=== PATIENT | female | born 1990 | race American Indian/Alaskan Native ===

== ENCOUNTER 2016-12-29 19:25 | Emergency (ER) | payer MEDICAID, OTHER ==
[2016-12-29 21:12] LABS: Basophils % (Auto) 0.9 % (0.0-1.8); Eosinophils % (Auto) 3.5 % (0.0-4.3); Hematocrit 37.4 % (30.3-42.9); Hemoglobin 11.7 gm/dl (10.1-14.3); Mean Corpuscular HGB Conc 31 % (30-34); Mean Corpuscular Volume 81 fl (79-97); Platelet Count 324 K/mm3 (140-440); Red Blood Count 4.65 M/mm3 (3.65-5.03); Red Cell Distribution Width 15.1 % (13.2-15.2); White Blood Count 6.2 K/mm3 (4.5-11.0)
[2016-12-29 21:14] LABS: Mean Corpuscular Hemoglobin 25 pg (28-32)
[2016-12-29 21:55] LABS: Bilirubin,Urine NEG (Negative); Blood,Urine MOD (Negative); Ketones,Urine NEG (Negative); Leukocyte Esterase,Urine NEG (Negative); Mucus,Urine FEW /HPF; Nitrite,Urine NEG (Negative); Protein,Urine <15 mg/dL mg/dL (Negative); Urobilinogen,Urine < 2.0 mg/dL (<2.0); WBC,Urine < 1.0 /HPF (0.0-6.0)
[2016-12-30 00:33] VITALS: BP 119/73
--- NOTE | 2016-12-30 01:09 | Emergency Department Report ---
HPI - General Chief Complaint: Urogenital-Female Time Seen by Provider: 12/30/16 00:24 - HPI HPI: 26-year-old -[place] female comes in for complaint of irregular periods since 09/28/2015. Patient reports that she seen by her [employer] but no longer has insurance and thought it was from her [employer] is why she continues to bleed. Patient reports that she will bleed for mild and stop them will come on for a month and then continued to bleed. Patient reports now 11/30/2016 she is now passing large clots. Patient denies any dizziness no shortness of breath no chest pain. She reports today's her period is not present. Patient reports that she was on control pills that was given by her [employer] for 1 month which, controlled her bleeding but has stopped the control pills and now Speck lenient in. He has no past medical history currently on no meds no known drug allergies. ED Past Medical Hx - Past Medical History Previous Medical History?: No - Surgical History Past Surgical History?: Yes Additional Surgical History: - Social History Smoking Status: Never Smoker Substance Use Type: None - Medications Home Medications: Home Medications Medication Instructions Recorded Confirmed Last Taken Type Acetaminophen/Codeine [Tylenol #3] 1 tab PO Q6H PRN #20 tab 05/30/15 Unknown Rx Doxycycline [Vibramycin CAP] 100 mg PO Q12HR 05/30/15 05/30/15 05/30/15 10:30 History Ibuprofen [Motrin] 600 mg PO Q8H PRN #30 tablet 05/30/15 Unknown Rx Promethazine [Phenergan TAB] 25 mg PO Q6HR PRN #20 tab 05/30/15 Unknown Rx Amoxicillin/K Clav Tab [Augmentin 1 tab PO Q12HR #20 tab 07/15/15 Unknown Rx 875 mg] Fluticasone [Flonase] 2 spray NS QDAY #1 bottle 07/15/15 Unknown Rx Loratadine [Claritin] 10 mg PO DAILY #30 tablet 07/15/15 Unknown Rx Prednisone [predniSONE 10 mg 10 mg PO .TAPER #1 tab.ds.pk 07/15/15 Unknown Rx (6-Day Pack, 21 Tabs)] Promethazine /Codeine 5 ml PO Q6H PRN #120 udc 07/15/15 Unknown Rx [Phenergan/Codeine 6.25-10 mg/5 ml] Ibuprofen [Motrin 800 MG tab] 800 mg PO Q8HR PRN #30 tablet 09/02/15 Unknown Rx metroNIDAZOLE [Flagyl] 500 mg PO Q12HR #14 tab 09/02/15 Unknown Rx Fluconazole [Diflucan TAB] 150 mg PO ONCE #1 tablet 01/07/16 Unknown Rx Ibuprofen [Motrin] 800 mg PO Q8HR PRN #15 tablet 01/07/16 Unknown Rx Penicillin Vk [Veetids TAB] 500 mg PO Q8H #30 tablet 01/07/16 Unknown Rx ED Review of Systems ROS: Stated complaint: ABD PAIN Other details as noted in HPI Constitutional: denies: chills, fever Eyes: denies: eye pain, eye discharge, vision change ENT: denies: ear pain, throat pain Respiratory: no symptoms reported Endocrine: no symptoms reported Gastrointestinal: denies: abdominal pain, nausea, diarrhea Genitourinary: abnormal menses Musculoskeletal: denies: back pain, joint swelling, arthralgia Skin: denies: rash, lesions Neurological: denies: headache, weakness, paresthesias Psychiatric: denies: anxiety, depression Hematological/Lymphatic: denies: easy bleeding, easy bruising Physical Exam - Physical Exam Vital Signs: Vital Signs 12/29/16 12/30/16 20:39 00:32 Temperature 97.7 F 98.0 F Pulse Rate 67 66 Respiratory 18 18 Rate Blood Pressure 116/54 Blood Pressure 119/73 [Left] O2 Sat by Pulse 99 99 Oximetry General: GENERAL: Alert and oriented x3, no apparent distress, Normal Gait, atraumatic. HEAD: Head is normocephalic and a-traumatic. EYES: Extra ocular muscles are intact. Pupils are equal, round, and reactive to light and accommodation. EARS: symetrical, atraumatic, non tender, ear canal clear and moderate cerumen, tympanic membrance non inflamed. gross auditory nml bilaterally. NOSE: Nose symetrical, Nontender,Nares appeared normal. MOUTH:Mouth is well hydrated and without lesions. Tonsils nonerythematous or swollen, Uvula midline, Tongue not elevated. Mucous membranes are moist. Posterior pharynx clear, no exudate or lesions. Patent airways. NECK: Supple. Non edematous, No carotid bruits. No lymphadenopathy or thyromegaly. LUNGS: Symetrical with respiration, No wheezing, no rales or crackles, CTAB. HEART: S1, S2 present, regular rate and rhythm without murmur, no rubs, no gallops. ABDOMEN: No organomegaly was noted,Positive bowel sounds, soft, and non- distended. . Nontender to palpation on all Quadrants, NO CVA tenderness. EXTREMITIES/MUSCULOSKELETAL: No cyanosis, clubbing, rash, lesions or edema. Full ROM bilaterally. UE/LE Pulses 2+ bilaterally. LE and UE 5+ strength bilaterally NEUROLOGIC: No focal Deficit, Cranial nerves II through XII are grossly intact. No loss of sensation, No facial droop, Negative rhomberg. PSYCHIATRIC: Mood is congruent with affect, denies suicidal or homicidal ideations. SKIN: Warm and dry, No lesions, No ulceration or induration present ED Course Vital Signs 12/29/16 12/30/16 20:39 00:32 Temperature 97.7 F 98.0 F Pulse Rate 67 66 Respiratory 18 18 Rate Blood Pressure 116/54 Blood Pressure 119/73 [Left] O2 Sat by Pulse 99 99 Oximetry ED Medical Decision Making - Lab Data Result diagrams: 12/29/16 20:56 - Medical Decision Making She has been evaluated by this provider in fast track. Discuss with patient that OB will be the best provider to handle her menorrhagia. Discussed with patient that we'll make a referral for her. Patient verbalized understanding. Critical care attestation.: If time is entered above; I have spent that time in minutes in the direct care of this critically ill patient, excluding procedure time. ED Disposition Clinical Impression: Menorrhagia with irregular cycle Disposition: DISCHARGED TO HOME OR SELFCARE Is pt being admited?: No Does the pt Need Aspirin: No Condition: Stable Instructions: Menorrhagia (ED) Additional Instructions: Recommend to follow up with [facility] [employer] provider to discuss irregular periods. Referrals: LULU LAW DO [Primary Care Provider] - 3-5 Days [facility] [Provider Group] - 3-5 Days Forms: Work/School Release Form(ED)
== END 2016-12-30 02:20 | disposition home or self-care (01) ==
LOC: ED 19:25
DX: N92.0 Excessive and frequent menstruation with regular cycle (principal)
CPT/HCPCS: 36415; 81001; 81025; 85025; 86850; 86900; 86901; 99283

== ENCOUNTER 2017-08-26 09:22 | Emergency (ER) | payer OTHER ==
[2017-08-26 09:32] VITALS: BP 132/74
--- NOTE | 2017-08-26 11:27 | Emergency Department Report ---
HPI - General Chief Complaint: Headache Time Seen by Provider: 08/26/17 11:10 - HPI HPI: She reports this congestion drainage that started over a week ago she's been taking [id number] medication and it is not clearing up. Now she is complaining that she is having some sore throat and occasional coughing. Sore throat is 310 feels sore worse with swallowing. Denies any drooling or difficulty swallowing. Denies any shortness of breath or chest pain. Patient triaged to reflect that she was having chest pain but patient denies any chest pain. She is also complaining in of pain to the front of her head that is 310 and achy. She said her headache started yesterday. Right ear pain also started yesterday. Denies any nausea or vomiting. Denies any fever or chills. Denies any abdominal or back pain. Denies any neck pain or stiffness. Denies any visual difficulties or dizziness. ED Past Medical Hx - Past Medical History Previous Medical History?: Yes Hx Headaches / Migraines: Yes - Surgical History Past Surgical History?: Yes Additional Surgical History: - Family History Family history: hypertension - Social History Smoking Status: Never Smoker Substance Use Type: None - Medications Home Medications: Home Medications Medication Instructions Recorded Confirmed Last Taken Type Acetaminophen/Codeine [Tylenol #3] 1 tab PO Q6H PRN #20 tab 05/30/15 Unknown Rx Doxycycline [Vibramycin CAP] 100 mg PO Q12HR 05/30/15 05/30/15 05/30/15 10:30 History Ibuprofen [Motrin] 600 mg PO Q8H PRN #30 tablet 05/30/15 Unknown Rx Promethazine [Phenergan TAB] 25 mg PO Q6HR PRN #20 tab 05/30/15 Unknown Rx Loratadine [Claritin] 10 mg PO DAILY #30 tablet 07/15/15 Unknown Rx Prednisone [predniSONE 10 mg 10 mg PO .TAPER #1 tab.ds.pk 07/15/15 Unknown Rx (6-Day Pack, 21 Tabs)] Promethazine /Codeine 5 ml PO Q6H PRN #120 udc 07/15/15 Unknown Rx [Phenergan/Codeine 6.25-10 mg/5 ml] Ibuprofen [Motrin 800 MG tab] 800 mg PO Q8HR PRN #30 tablet 09/02/15 Unknown Rx metroNIDAZOLE [Flagyl] 500 mg PO Q12HR #14 tab 09/02/15 Unknown Rx Fluconazole [Diflucan TAB] 150 mg PO ONCE #1 tablet 01/07/16 Unknown Rx Ibuprofen [Motrin] 800 mg PO Q8HR PRN #15 tablet 01/07/16 Unknown Rx Penicillin Vk [Veetids TAB] 500 mg PO Q8H #30 tablet 01/07/16 Unknown Rx Amoxicillin/K Clav Tab [Augmentin 1 tab PO Q12HR #20 tab 08/26/17 Unknown Rx 875MG TAB] Cetirizine HCl [ZyrTEC] 10 mg PO QAM 14 Days #14 capsule 08/26/17 Unknown Rx Fluticasone [Flonase] 2 spray NS QDAY 14 Days #1 bottle 08/26/17 Unknown Rx Neomy/Polymyx B/Hc (Otic) Soln 4 drops OTIC TID 7 Days #1 bottle 08/26/17 Unknown Rx [Cortisporin (Otic) Soln] ED Review of Systems ROS: Stated complaint: CHEST PAIN, HEADACHE, AND NECK PAIN Other details as noted in HPI Comment: All other systems reviewed and negative Constitutional: no symptoms reported Eyes: denies: eye pain, eye discharge, vision change ENT: ear pain, throat pain, congestion. denies: dental pain, hearing loss, epistaxis Respiratory: cough. denies: orthopnea, shortness of breath, SOB with exertion, SOB at rest, stridor, wheezing Cardiovascular: denies: chest pain, palpitations, dyspnea on exertion, edema, syncope Gastrointestinal: denies: abdominal pain, nausea, vomiting, diarrhea Genitourinary: denies: urgency, dysuria, frequency, hematuria, discharge Musculoskeletal: denies: back pain, joint swelling, arthralgia, myalgia Skin: denies: rash Neurological: denies: headache, weakness, numbness, paresthesias, confusion, abnormal gait, vertigo Physical Exam - Physical Exam Vital Signs: Vital Signs 08/26/17 09:26 Temperature 98.6 F Pulse Rate 71 Respiratory 22 Rate Blood Pressure 132/74 O2 Sat by Pulse 100 Oximetry General: 27-year-old female well-nourished well-developed in no acute distress Physical Exam: Head: Normocephalic atraumatic. No contusion or abrasion. No laceration. Ears:BIateral TM congested without erythema . no loss of bony landmarks. RT EAC with erythema.Rt tragus TTP. No mastoid bone tenderness. No drainage Mouth: Moist, no pharyngeal erythema or exudate . No tonsillar erythema or exudate. UVULA midline and oral airways patent. No peritonsillar abscess. Tongue is normal Neck: Nontender to palpate, supple, normal range of motion. No adenopathy. No c- spine tenderness. Nose: Bilateral nasal mucosa congested, erythema with clear drainage. Maxillary and frontal sinuses tender to palpate. Abdomen: The palpate in all quadrants. No guarding or rebound tenderness. Normal bowel sounds and no CVA tenderness Neurlogical : At 15, speech is clear and fluid, alert and oriented 3, normal gait, bilateral hand women's swim coach strong and equal, negative Romberg and negative pronator drift. No motor or sensory deficits and reflexes are normal Eyes: Sammy Sclerae and conjunctiva without injection. Bilateral pupils equal and reactive to light. Bilateral lids are normal. Normal accommodation.BEOMI Lungs: Clear to auscultate bilaterally, no rhonchi wheezes or rales. Normal work of breathing and no chest wall tenderness CV: S1, S2. Regular rate and rhythm negative murmur. Capillary refill is less than 3 seconds Skin: Clean dry and intact, no rashes or lesions Psych: Normal mood and behavior ED Course Vital Signs 08/26/17 09:26 Temperature 98.6 F Pulse Rate 71 Respiratory 22 Rate Blood Pressure 132/74 O2 Sat by Pulse 100 Oximetry - Reevaluation(s) Reevaluation #1: 08/26/17 12:14 Stable throughout ED stay ED Medical Decision Making - Medical Decision Making ED course: Patient here with nasal congestion drainage, right earache, occasional cough and frontal headache. Physical findings for congestive, erythema nasal mucosa with maxillary and frontal sinus tenderness and clear drainage. Patient with right ear tenderness to the EAC and swelling. Patient diagnosis of otitis externa right ear, sinusitis, cough and episodic headache. Patient is neurologically intact. I explained to patient diagnosis and treatment plan and she voiced understanding and I discussed with her that she needs to follow up with her primary care in 5 days and if she do not have a primary care she can follow-up with [facility]. Patient had no complaints of chest pain although it says in her triage note that she was complaining of chest pain she says she's does not have chest pain. Discharge prescriptions for Zyrtec, Flonase, Corticosporin otic and Augmentin. Critical care attestation.: If time is entered above; I have spent that time in minutes in the direct care of this critically ill patient, excluding procedure time. ED Disposition Clinical Impression: Otalgia of right ear Sinusitis, acute Qualifiers: Sinusitis location: unspecified location Recurrence: not specified as recurrent Qualified Code(s): J01.90 - Acute sinusitis, unspecified Nonintractable episodic headache Qualifiers: Headache type: unspecified Qualified Code(s): R51 - Headache Otitis externa of right ear Qualifiers: Otitis externa type: unspecified type Chronicity: acute Qualified Code(s): H60.501 - Unspecified acute noninfective otitis externa, right ear Disposition: DC- TO HOME OR SELFCARE Is pt being admited?: No Does the pt Need Aspirin: No Condition: Stable Instructions: Sinusitis (ED), Otitis Externa (ED), Earache (ED), Acute Headache (ED) Additional Instructions: Please increase fluid intake Flush nostrils out with saline nasal wash. Take Antibiotic as prescribed Take Zyrtec and Flonase for 14 days to relieve congestion. instill 4 drops in right ear 3 times a day for 7 days. gargle Warm salt water to relieve sore throat Prescriptions: Amoxicillin/K Clav Tab [Augmentin 875MG TAB] 1 tab PO Q12HR #20 tab Cetirizine HCl [ZyrTEC] 10 mg PO QAM 14 Days #14 capsule Fluticasone [Flonase] 2 spray NS QDAY 14 Days #1 bottle Neomy/Polymyx B/Hc (Otic) Soln [Cortisporin (Otic) Soln] 4 drops OTIC TID 7 Days #1 bottle Referrals: PRIMARY CARE, [Primary Care Provider] - 08/31/17 [facility] [Outside] - 08/31/17 Forms: Work/School Release Form(ED)
== END 2017-08-26 12:45 | disposition home or self-care (01) ==
LOC: ED 09:22
DX: J01.90 Acute sinusitis, unspecified (principal); H60.501 Unspecified acute noninfective otitis externa, right ear; H92.01 Otalgia, right ear; G43.909 Migraine, unspecified, not intractable, without status migrainosus
CPT/HCPCS: 99282

== ENCOUNTER 2021-10-04 00:14 | Emergency (ER) | payer SELFPAY ==
[2021-10-04 00:20] VITALS: BP 117/70
== END 2021-10-04 00:20 | disposition left against medical advice (07) ==
LOC: ED 00:14
DX: N89.8 Other specified noninflammatory disorders of vagina (principal); Z53.21 Procedure and treatment not carried out due to patient leaving prior to being seen by health care provider